=== PATIENT | male | born 1980 ===

== ENCOUNTER 2019-06-08 18:42 | Emergency (ER) | payer OTHER ==
[~2019-06-08] VITALS: Ht 180.3 cm; Wt 91.6 kg
== END 2019-06-08 21:59 | disposition home or self-care (01) ==
LOC: ER 18:42
DX: S61.220A Laceration with foreign body of right index finger without damage to nail, initial encounter (principal); W26.0XXA Contact with knife, initial encounter; Y93.89 Activity, other specified; Y92.69 Other specified industrial and construction area as the place of occurrence of the external cause; Y99.8 Other external cause status